=== PATIENT | male | born 1995 ===

== ENCOUNTER 2018-05-29 06:19 | Emergency (ER) | payer BC ==
[2018-05-29 06:52] LABS: BASO % 0.3 % (0.0-2.0); EOS % 0.1 % (0.0-4.0); HEMOGLOBIN 15.2 g/dL (12.0-18.0); LYMPH # 1.7 K/uL (1.0-4.3); LYMPH % 11.6 % (20.0-40.0); MEAN CELL VOLUME 90.2 fL (80.0-94.0); MEAN CORPUSCULAR HEMOGLOBIN 30.7 pg (27.0-31.0); MEAN CORPUSCULAR HGB CONC 34.1 g/dL (33.0-37.0); MEAN PLATELET VOLUME 7.8 fL (7.2-11.7); MONO # 0.9 K/uL (0.0-0.8); MONO % 6.2 % (0.0-10.0); NEUT # 11.9 K/uL (1.8-7.0); NEUT % 81.8 % (50.0-75.0); RBC 4.95 Mil/uL (4.40-5.90); RED CELL DISTRIBUTION WIDTH 14.3 % (11.5-14.5); WHITE BLOOD COUNT 14.5 K/uL (4.8-10.8)
[2018-05-29 07:05] LABS: ALB/GLOB RATIO 1.6 (1.0-2.1); ALT/SGPT 36 U/L (21-72); AST/SGOT 23 U/L (17-59); BLOOD UREA NITROGEN 11 mg/dL (9-20); CALCIUM 10.4 mg/dl (8.6-10.4); GFR NON-AFRICAN AMERICAN > 60; LIPASE 43 U/L (23-300)
[2018-05-29] MEDS ORDERED: Sodium Chloride 0.9% 1,000 ML IV ONE (07:22)
[2018-05-29] MEDS ORDERED: Iohexol 240 (50 ml) PO STA (07:22)
[2018-05-29] MEDS ORDERED: Iohexol 240 (50 ml) ONE (07:31)
[2018-05-29] MEDS ORDERED: Iohexol 350mg/ml 100 ML ONE (09:49)
--- NOTE | 2018-05-29 10:44 | CT ---
PROCEDURE: CT Abdomen and Pelvis with oral and IV contrast. HISTORY: abd pain COMPARISON: CT abdomen and pelvis with IV contrast performed 11/30/15 TECHNIQUE: Contiguous axial images of the abdomen and pelvis. Oral and IV contrast was administered. Coronal and Sagittal reformats generated and reviewed. Contrast dose: 100 mL Omnipaque 350 Radiation dose: Total exam DLP = 909.70 mGy-cm. This CT exam was performed using one or more of the following dose reduction techniques: Automated exposure control, adjustment of the mA and/or kV according to patient size, and/or use of iterative reconstruction technique. FINDINGS: LOWER THORAX: No visible consolidation, pleural effusion, or pneumothorax. Small hiatal hernia/distal esophageal wall thickening. LIVER: Unremarkable. GALLBLADDER AND BILE DUCTS: Unremarkable. PANCREAS: Unremarkable. SPLEEN: Unremarkable. ADRENALS: Unremarkable. KIDNEYS AND URETERS: The kidneys enhance symmetrically. No hydronephrosis or obstructing renal calculus. BLADDER: The urinary bladder appears unremarkable. REPRODUCTIVE: Unremarkable. APPENDIX: The appendix appears within normal limits of caliber. No secondary signs of acute appendicitis. BOWEL: The stomach is nondistended. The bowel loops appear within normal limits of caliber without evidence of intestinal obstruction. PERITONEUM: No significant free fluid. No definite free air. LYMPH NODES: No bulky lymphadenopathy identified. VASCULATURE: No aortic aneurysm. BONES: No acute osseous abnormality is detected. OTHER FINDINGS: None. IMPRESSION: No acute pathology identified.
[2018-05-29 10:51] VITALS: RESP 16
[2018-05-29 11:28] LABS: URINE AMORPHOUS SEDIMENT FEW /ul (<OCC); URINE BILIRUBIN NEGATIVE (NEGATIVE); URINE BLOOD NEGATIVE (NEGATIVE); URINE CLARITY Turbid (Clear); URINE COLOR Yellow (YELLOW); URINE GLUCOSE (UA) NORMAL (Normal); URINE LEUKOCYTE ESTERASE NEG Leu/uL (Negative); URINE PROTEIN NEGATIVE (NEGATIVE); URINE UROBILINOGEN NORMAL mg/dL (0.2-1.0)
--- NOTE | 2018-05-29 11:36 | C.PDOC ---
History Of Present Illness 23-year-old male presents to the ED for evaluation of abdominal pain, nausea and multiple episodes of vomiting which began yesterday. Patient reports vomiting yellow/green fluids. He admits to smoking marijuana on a daily basis. He denies fever, chills, and diarrhea at this time. Time Seen by Provider: 05/29/18 06:58 Chief Complaint (Nursing): Abdominal Pain History Per: Patient History/Exam Limitations: no limitations Onset/Duration Of Symptoms: Hrs Current Symptoms Are (Timing): Still Present Location Of Pain/Discomfort: Diffuse Radiation Of Pain To:: None Quality Of Discomfort: "Pain" Associated Symptoms: Nausea, Vomiting. denies: Fever, Chills, Diarrhea Additional History Per: Patient Past Medical History Reviewed: Historical Data, Nursing Documentation, Vital Signs Vital Signs: Last Vital Signs Temp 98.7 F 05/29/18 14:24 Pulse 84 05/29/18 14:24 Resp 16 05/29/18 14:24 BP 104/68 05/29/18 14:24 Pulse Ox 99 05/30/18 18:49 - Medical History PMH: No Chronic Diseases Surgical History: No Surg Hx Family History: States: Unknown Family Hx - Social History Hx Tobacco Use: Yes Hx Alcohol Use: No Hx Substance Use: Yes - Immunization History Hx Tetanus Toxoid Vaccination: No Hx Influenza Vaccination: No Hx Pneumococcal Vaccination: No Review Of Systems Constitutional: Negative for: Fever, Chills Cardiovascular: Negative for: Chest Pain, Palpitations Respiratory: Negative for: Cough, Shortness of Breath Gastrointestinal: Positive for: Nausea, Vomiting, Abdominal Pain. Negative for : Diarrhea, Constipation Genitourinary: Negative for: Dysuria, Frequency Skin: Negative for: Rash Neurological: Negative for: Weakness, Numbness Physical Exam - Physical Exam Appears: Non-toxic, No Acute Distress, Other (uncomfortable ) Skin: Normal Color, Warm, Dry Head: Atraumatic, Normacephalic Eye(s): bilateral: Normal Inspection Oral Mucosa: Moist Neck: Supple Chest: Symmetrical, No Deformity, No Tenderness Cardiovascular: Rhythm Regular, No Murmur Respiratory: Normal Breath Sounds, No Rales, No Rhonchi, No Wheezing Gastrointestinal/Abdominal: Soft, Tenderness (epigastric ), No Guarding, No Rebound Extremity: Normal ROM, Capillary Refill (less than 2 seconds ) Neurological/Psych: Oriented x3, Normal Speech, Normal Cognition ED Course And Treatment - Laboratory Results Result Diagrams: 05/29/18 06:49 05/29/18 06:49 O2 Sat by Pulse Oximetry: 99 (on RA) Pulse Ox Interpretation: Normal Medical Decision Making Medical Decision Making: Progress: Bloodwork, urinalysis, CT A/P ordered and reviewed. Pepcid IVP, Zofran IVP, and IV Fluids given. no acute pathology on ct scan; pt feels better, no longer nauseous. tolerating po fluids. will d/c home advised to stop smoking marijuana. 1142 correction- pt vomited after po fluids, will give another dose zofran 1400 pt feeling well, no abdominal pain, re-exam of abdomen- soft, nd, nt. pt drank po fluids and tolerated them. will d/c home, zofran and pepcid, pmd and gi f/u Disposition Counseled Patient/Family Regarding: Studies Performed, Diagnosis - Disposition Disposition: HOME/ ROUTINE Disposition Time: 14:05 Condition: IMPROVED Additional Instructions: Recommend you stop smoking marijuana. Take zofran and pepcid as prescribed. Follow up with medical clinic for re-evaluation; return to ER for any worse symptoms. Prescriptions: Famotidine [Pepcid] 20 mg PO DAILY #14 tab Ondansetron ODT [Zofran ODT] 4 mg PO TID #12 odt Instructions: Nausea and Vomiting, Adult (DC) Forms: [facility] ([place]ican), General Discharge Instructions - Clinical Impression Clinical Impression: Nausea & vomiting - PA / METAL GRINDER / Resident Statement MD/DO has reviewed & agrees with the documentation as recorded. - Scribe Statement The provider has reviewed the documentation as recorded by the Scribe (Radha Holcomb) All medical record entries made by the Scribe were at my direction and personally dictated by me. I have reviewed the chart and agree that the record accurately reflects my personal performance of the history, physical exam, medical decision making, and the department course for this patient. I have also personally directed, reviewed, and agree with the discharge instructions and disposition.
[2018-05-29 14:25] VITALS: BP 104/68; PULSE 84; TEMP 98.7
[2018-05-29 21:05] VITALS: O2SAT 99
== END 2018-05-29 14:25 | disposition home or self-care (01) ==
LOC: C.ER 06:19
DX: R11.2 Nausea with vomiting, unspecified (principal)
CPT/HCPCS: 74177; 80053; 81001; 83690; 85025; 96361; 96374; 96375; 96376; 99285; J2405; J7030; Q9966; Q9967

== ENCOUNTER 2018-12-31 19:35 | Emergency (ER) | payer BC ==
[2018-12-31] MEDS ORDERED: Sodium Chloride 0.9% 1,000 ML IV ONE (20:59)
--- NOTE | 2018-12-31 21:14 | C.PDOC ---
History Of Present Illness Patient is a 23 year old male, with no PMHx or PSHx, who presents to the ED c/o RLQ abdominal pain with associated nausea, vomiting, and diarrhea since 9am today. Patient also reports that he has been sweating a lot today and cannot keep anything down. He denies any fever, chills, CP, or SOB. Time Seen by Provider: 12/31/18 20:48 Chief Complaint (Nursing): Abdominal Pain History Per: Patient History/Exam Limitations: no limitations Onset/Duration Of Symptoms: Hrs (9am) Current Symptoms Are (Timing): Still Present Location Of Pain/Discomfort: RLQ Quality Of Discomfort: "Pain" Associated Symptoms: Nausea, Vomiting, Diarrhea, Other (sweats). denies: Fever, Chills, Chest Pain Recent travel outside of the [place]: No Additional History Per: Patient Past Medical History Reviewed: Historical Data, Nursing Documentation, Vital Signs Vital Signs: Last Vital Signs Temp 98.2 F 12/31/18 19:37 Pulse 69 12/31/18 19:37 Resp 18 12/31/18 19:37 BP 140/86 12/31/18 19:37 Pulse Ox 98 12/31/18 19:37 - Medical History PMH: Gastritis Denies: Chronic Kidney Disease Surgical History: No Surg Hx Family History: States: Unknown Family Hx - Social History Hx Tobacco Use: Yes Hx Alcohol Use: No Hx Substance Use: No - Immunization History Hx Tetanus Toxoid Vaccination: No Hx Influenza Vaccination: No Hx Pneumococcal Vaccination: No Review Of Systems Constitutional: Positive for: Sweats. Negative for: Fever, Chills Cardiovascular: Negative for: Chest Pain Respiratory: Negative for: Shortness of Breath Gastrointestinal: Positive for: Nausea, Vomiting, Abdominal Pain (RLQ), Diarrhea Physical Exam - Physical Exam Appears: Non-toxic, In Acute Distress (mild) Skin: Normal Color, Warm, Dry Head: Atraumatic, Normacephalic Oral Mucosa: Moist Neck: Supple Chest: Symmetrical, No Deformity Cardiovascular: Rhythm Regular, No Murmur Respiratory: Normal Breath Sounds, No Rales, No Rhonchi, No Wheezing Gastrointestinal/Abdominal: Soft, Tenderness (RLQ ), No Distention, No Guarding, No Rebound Neurological/Psych: Oriented x3, Normal Speech, Normal Cognition ED Course And Treatment - Laboratory Results Result Diagrams: 12/31/18 21:15 12/31/18 21:15 O2 Sat by Pulse Oximetry: 98 (on RA) Pulse Ox Interpretation: Normal - CT Scan/US CT abd/pelvis Other Rad Studies (CT/US): Read By Radiologist, Radiology Report Reviewed CT/US Interpretation: EXAM: CT Abdomen and Pelvis with IV contrast. CLINICAL HISTORY: Rlq abd pain. TECHNIQUE: Axial computed tomography images of the abdomen and pelvis with intravenous contrast. 0.00 mGy-cm. CONTRAST: With; 100MLS VISI 320. COMPARISON: None provided. FINDINGS: LUNG BASES: The lung bases appear clear. No pleural effusions are seen. LIVER: There is hepatomegaly. The liver measured 19.4 cm in the mid clavicular line. GALLBLADDER AND BILE DUCTS: The gallbladder appears within normal limits. No radioopaque gallstones are seen. No biliary ductal dilatation is evident. PANCREAS: Unremarkable. SPLEEN: Unremarkable. ADRENAL GLANDS: Unremarkable. KIDNEYS, URETERS, AND BLADDER: The kidneys appear within normal limits. There is no hydronephrosis or hydroureter. No urinary calculi are seen. The urinary bladder appeared normal in size and configuration. STOMACH AND BOWEL: Unremarkable appearance of the stomach. No evidence of bowel obstruction. There is mucosal wall thickening of the duodenum with fluid identified in its lumen thought compatible with duodenitis. No evidence suggesting enteritis or colitis. APPENDIX: No evidence of acute appendicitis on CT examination although appendix is not identified with certainty. PERITONEUM: No free fluid. No free air. LYMPH NODES: No lymphadenopathy is evident. REPRODUCTIVE: Unremarkable as visualized. VASCULATURE: No evidence of abdominal aortic aneurysm. BONES: No aggressive appearing osseous lesion. No acute osseous pathology evident. IMPRESSION: 1. Hepatomegaly. 2. Evidence of duodenitis. . Electronically signed on Dec 31, 2018 11:11:26 PM EDT by: Hosea Reed M.D., YE Certified By ABR & CBC[facility]. Fellowship Trained MRI and CT Specialist Medical Decision Making Medical Decision Making: Plan: CAT A&P Labs Urinalysis Toradol 30mg IVP Zofran 4mg IVP IV Fluids Patient re-evaluated after NS bolus, zofran, and toradol. Reports feeling better. Results discussed with patient. Likely gastroenteritis. Rx written for zofran ODT. Disposition - Disposition Disposition: HOME/ ROUTINE Disposition Time: 23:50 Condition: STABLE Additional Instructions: DANIEL LOPEZ, thank you for letting us take care of you today. Your provider was Brenna Novoa MD and you were treated for STOMACH PAINS. The emergency medical care you received today was directed at your acute symptoms. If you were prescribed any medication, please fill it and take as directed. It may take several days for your symptoms to resolve. Return to the Emergency Department if your symptoms worsen, do not improve, or if you have any other problems. Please contact your doctor or call one of the physicians/clinics you have been referred to that are listed on the Patient Visit Information form that is included in your discharge packet. Bring any paperwork you were given at discharge with you along with any medications you are taking to your follow up visit. Our treatment cannot replace ongoing medical care by a primary care provider outside of the emergency department. Thank you for allowing the [facility] team to be part of your care today. If you had an X-Ray or CT scan: A Radiologist will review the ED reading if any change in treatment is needed we will contact you. If you had a blood, urine, or wound culture: It will take several days for the results, if any change in treatment is needed we will contact you. If you had an STI test: It will take 48 hours for the results. Please call after 1 week if you have not heard back. Prescriptions: Ondansetron ODT [Zofran ODT] 4 mg PO TID #9 odt Instructions: Viral Gastroenteritis, Adult (DC) Forms: [facility] (H[place]er) - Clinical Impression Clinical Impression: Gastroenteritis - Scribe Statement The provider has reviewed the documentation as recorded by the Radha Ferguson All medical record entries made by the Scribclementina were at my direction and personally dictated by me. I have reviewed the chart and agree that the record accurately reflects my personal performance of the history, physical exam, medical decision making, and the department course for this patient. I have also personally directed, reviewed, and agree with the discharge instructions and disposition.
[2018-12-31 21:26] LABS: BASO % 0.4 % (0.0-2.0); EOS % 0.1 % (0.0-4.0); HEMOGLOBIN 14.6 g/dL (12.0-18.0); LYMPH # 1.1 K/uL (1.0-4.3); LYMPH % 9.2 % (20.0-40.0); MEAN CELL VOLUME 91.7 fL (80.0-94.0); MEAN CORPUSCULAR HEMOGLOBIN 30.3 pg (27.0-31.0); MEAN PLATELET VOLUME 8.4 fL (7.2-11.7); MONO # 0.4 K/uL (0.0-0.8); MONO % 2.9 % (0.0-10.0); NEUT # 10.6 K/uL (1.8-7.0); NEUT % 87.4 % (50.0-75.0); PLATELET COUNT 279 K/uL (130-400); RBC 4.82 Mil/uL (4.40-5.90); RED CELL DISTRIBUTION WIDTH 13.7 % (11.5-14.5); WHITE BLOOD COUNT 12.1 K/uL (4.8-10.8)
[2018-12-31 21:32] LABS: ALB/GLOB RATIO 1.6 (1.0-2.1); ALBUMIN 5.1 g/dL (3.5-5.0); ALT/SGPT 18 U/L (21-72); AST/SGOT 23 U/L (17-59); BLOOD UREA NITROGEN 11 mg/dL (9-20); CALCIUM 10.5 mg/dl (8.6-10.4); GFR NON-AFRICAN AMERICAN > 60
[2018-12-31] MEDS ORDERED: Iodixanol 320 MG/ML 100 ML BOTTLE IV ONE (21:56)
[2018-12-31 23:07] LABS: LYMPHOCYTE 8 % (20-40); MONOCYTE 3 % (0-10); NEUTROPHIL 89 % (50-75); PLATELET ESTIMATE NORMAL (NORMAL); TOTAL CELLS COUNTED 100
[2019-01-01 00:06] VITALS: BP 131/68; PULSE 86; RESP 20; TEMP 98.1; O2SAT 98
--- NOTE | 2019-01-01 09:44 | CT ---
CT abdomen and pelvis HISTORY: Right lower quadrant abdominal pain. Comparison: CT dated 05/29/2018 Technique: Multiple contiguous axial images were performed through the abdomen and pelvis with the use of intravenous contrast. Subsequently, sagittal and coronal reformatted images were obtained. This CT exam was performed using one or more of the following dose reduction techniques: Automated exposure control, adjustment of the mA and/or kV according to patient size, and/or use of iterative reconstruction technique. Findings: Lung bases are clear. No pleural or pericardial effusion. Liver is prominent measuring up to 20 centimeters. Gallbladder is preserved. Spleen is preserved. Adrenal glands are preserved. Pancreas is preserved. Upper abdominal bowel is grossly preserved. Right kidney: No calculi or hydronephrosis. Left Kidney: No calculi or hydronephrosis. Underdistended urinary bladder. Prostate is preserved. Underdistention and or mild thickening of the transverse and left hemicolon. Clinical correlation. Appendix is grossly preserved. No significant abdominal or pelvic lymphadenopathy. Degenerative changes in the spine. Impression: Underdistention and or mild thickening of the transverse and left hemicolon. Clinical correlation. Prominent liver. A preliminary report was generated at 11:11 p.m. on 12/31/[address] Hosea Reed from [facility]. This case was placed in the PA review folder.
== END 2019-01-01 00:06 | disposition home or self-care (01) ==
LOC: C.ER 19:35
DX: K52.9 Noninfective gastroenteritis and colitis, unspecified (principal)
CPT/HCPCS: 74177; 80053; 83735; 84100; 85025; 96361; 96374; 96375; 99285; J1885; J2405; J7030; Q9967